=== PATIENT | male | born 1995 | race African-American/Black ===

== ENCOUNTER 2018-06-19 22:07 | Emergency (ER) | payer OTHER ==
[~2018-06-19] VITALS: Ht 188 cm; Wt 79.9 kg
[2018-06-19 22:14] VITALS: Ht 188 cm; Wt 79.9 kg
[2018-06-19 23:02] VITALS: BP 137/58
== END 2018-06-19 23:23 | disposition home or self-care (01) ==
LOC: ED 22:07
DX: S46.911A Strain of unspecified muscle, fascia and tendon at shoulder and upper arm level, right arm, initial encounter (principal); V02.99XA Pedestrian with other conveyance injured in collision with two- or three-wheeled motor vehicle, unspecified whether traffic or nontraffic accident, initial encounter; Y93.89 Activity, other specified; Y92.413 State road as the place of occurrence of the external cause; Y99.8 Other external cause status